=== PATIENT | male | born 1965 | race Caucasian/White ===

== ENCOUNTER 2020-10-14 07:38 | Day surgery (SDC) | payer OTHER | END 2020-10-14 13:10 | disposition home or self-care (01) | LOC: AMB-ENDOS 07:38 → EDBD 14:45 | PROVIDERS: ATTEND Colon & Rectal Surgery | DX: D12.8 Benign neoplasm of rectum (principal); K64.0 First degree hemorrhoids; Z12.11 Encounter for screening for malignant neoplasm of colon ==

== ENCOUNTER 2020-11-03 17:41 | Inpatient (IN) | payer OTHER ==
[~2020-11-03] VITALS: Ht 170.2 cm; Wt 78.9 kg
--- NOTE | 2020-11-03 17:54 | NUR ---
PTE ALERTA Y ORIENTADO X3 EN AMBULANCIA. PARAMEDICOS INDICAN QUE EL PTE ES UN TRANSFER DE MENONITA DE [place].PTE REFIERE DOLOR ABDOMINAL. PTE CANALIZADO EN MANO DERECHA AREA FISH DE EDEMA Y DE ENROJECIMIENTO. PTE CON DRIP .9NSS BAJANDO A 125ML/HR. SE COLOCA PTE EN BHASKAR #07.
--- NOTE | 2020-11-03 19:09 | NUR ---
PTE MASCULINO ALERTA Y ORIENTADO EN LAS CYNDIE EFERAS ES EVALUDO POR . MR.HAIDER ORIENTA SOBRE ORDENES DE [place] REFIERE COMPRENDER. PTE CON CANLAIZACION EN MANO R+ CON ANGIO #20 PROVENIENTE DE AMBULANCIA, SE VERIFICA PATENTICIDAD, AREA FISH DE EDEMA Y ERITEMA. SE ADMINISTRAN MEDICAMENTOS, BAJO MEDIDAS ASEPTICAS. SE NOTIFICA A RADIOLOGIA PARA XRAY.
--- NOTE | 2020-11-03 23:21 | NUR ---
SE RECIBE PTE MASCULINO ALERTA,ORIENTADO POR CYNDIE EN BHASKAR CON BARANDAS ELEVADAS EN POSICION SEMI-HONG. SE OBSERVA PTE CON BUEN PATRON RESPIRATORIO. CANALIZACION PATENTE, FISH DE EDEMA Y ERITEMA. RECIBIENDO TERAPIA DE IVFS 0.9NSS BAJANDO A 200ML/HR. PENDIENTE LECTURA OFICIAL DE CT. AL MOMENTO PTE NO REFIERE DOLOR. SE MANTIENE BAJO OSBERVACION PTE POR CAMBIOS.
== END 2020-11-05 14:16 | disposition home or self-care (01) | DRG 394 ==
LOC: ER 17:41 → SURH 23:24
PROVIDERS: ADMIT Colon & Rectal Surgery; ATTEND Colon & Rectal Surgery
PROC: BW21YZZ Computerized Tomography (CT Scan) of Abdomen and Pelvis using Other Contrast (ICD-10-PCS; principal; 2020-11-03)
DX: K66.8 Other specified disorders of peritoneum (principal); K92.1 Melena; N20.0 Calculus of kidney; Z20.822 Contact with and (suspected) exposure to COVID-19